=== PATIENT | female | born 1995 | race Caucasian/White ===

== ENCOUNTER 2019-07-20 02:24 | Inpatient (IN) | payer BC ==
[~2019-07-20] VITALS: Ht 162.6 cm; Wt 68.8 kg
[2019-07-20] MEDS ORDERED: ZYRTEC10 MG PO (02:29)
[2019-07-20] MEDS ORDERED: OMEPRAZOLE20 M1 PO ×2 (02:30→05:37)
[2019-07-20] MEDS ORDERED: CARAFATE1 G PO (02:30)
[2019-07-20] MEDS ORDERED: BIRTH CONTROL (02:30)
[2019-07-20 02:53] LABS: BASOPHILS 0.2 % (0-2); EOSINOPHILS 2.3 % (0-7); HEMATOCRIT 41.8 % (36.0-48.0); HEMOGLOBIN 14.2 g/dL (12-16); IMMATURE GRANULOCYTES 0.4 % (0-5); LYMPHOCYTES 33.3 % (15-50); MCH 30.1 pg (26.0-34.0); MCV 88.7 fL (80.0-100.0); MEAN PLATELET VOLUME 10.3 fL (7.4-10.4); MONOCYTES 6.6 % (2-11); NEUTROPHILS 57.2 % (40-80); PLATELET COUNT 201 10x3/uL (130-400); RBC 4.71 10x6/uL (4.00-5.40); RDW 12.3 % (11.5-14.5); WBC 9.3 10x3/uL (4.8-10.8)
[2019-07-20 02:57] LABS: APPEARANCE CLEAR (CLEAR); BILIRUBIN NEGATIVE (NEGATIVE); COLOR STRAW (YELLOW); GLUCOSE NEGATIVE (NEGATIVE); KETONE NEGATIVE (NEGATIVE); NITRITE NEGATIVE (NEGATIVE); PROTEIN NEGATIVE (NEGATIVE); SPECIFIC GRAVITY 1.005 (1.005-1.020); UROBILINOGEN NORMAL (NORMAL)
[2019-07-20 03:02] LABS: HCG SERUM NEGATIVE (NEGATIVE)
[2019-07-20 03:03] LABS: CALC OSMOLALITY 277 mosm/kg (275-300); CALCIUM 9.6 mg/dL (8.5-10.1); CARBON DIOXIDE 28.5 mmol/L (21.0-32.0); CHLORIDE - SERUM 102 mmol/L (98-107); CREATININE - SERUM 0.7 mg/dL (0.6-1.3); GLUCOSE 98 mg/dL (74-106); POTASSIUM - SERUM 3.4 mmol/L (3.5-5.1); SODIUM 139 mmol/L (136-145); UREA NITROGEN 12 mg/dL (7-18); eGFR NON AFRICAN AMERICAN > 90 mL/min (90-120)
[2019-07-20 03:09] LABS: ALBUMIN 3.5 g/dL (3.4-5.0); ALKALINE PHOSPHATASE 67 U/L (46-116); ALT (SGPT) 28 U/L (10-68); AMYLASE - SERUM 49 U/L (25-115); BILIRUBIN - TOTAL 0.36 mg/dL (0.2-1.3); LIPASE 237 U/L (73-393); PROTEIN - SERUM 7.4 g/dL (6.4-8.2)
[2019-07-20 04:05] VITALS: BP 123/82
--- NOTE | 2019-07-20 04:12 | NUR ---
PT LEFT ED VIA STRETCHER FOR CT.
--- NOTE | 2019-07-20 04:28 | NUR ---
PT RETURNED TO ED VIA STRETCHER FROM CT.
[2019-07-20] MEDS ORDERED: PHENERGAN25 M1 PO (05:37)
[2019-07-20] MEDS ORDERED: LINZESS145 MCG PO (05:37)
[2019-07-20] MEDS ORDERED: CELEXA10 MG PO (05:38)
--- NOTE | 2019-07-20 06:00 | NUR ---
PT ARIVED VIA W/C WITH FMILY AT SIDE. NO DISTRESS NOTED.
[2019-07-20] MEDS ORDERED: LORYNA (06:09)
[2019-07-20 06:11] VITALS: BP 130/89; BMI 26.6
--- NOTE | 2019-07-20 06:26 | NUR ---
ADMISSION ASSESSMENT, HISTORY AND HOME MED LIST COMPLETED. PT STATES ABD STILL 12/24. IV TO RAC WITH NS AT 200CC/HR. IV PATENT. PT UNDERSTANDS NPO UNTIL AFTER ABD U/S AND SEEN BY DR MG. SPOUSE AT BEDSIDE. SR UP X1, CALL LIGHT WITHIN REACH.
[2019-07-20 09:47] VITALS: Ht 162.6 cm; Wt 68.8 kg
[2019-07-20 10:12] VITALS: BP 116/73
[2019-07-20] MEDS ORDERED: HYDROCODON-ACE1 EAC7 PO (13:32)
[2019-07-20 15:27] VITALS: BP 123/76
[2019-07-20 19:31] VITALS: BP 118/78
--- NOTE | 2019-07-20 20:45 | NUR ---
PATIENT RESTING IN BED WITH EYES OPEN. CALM AND COOPERATIVE WITH CARE AND ASSESSMENT. COMPLAINS OF ABDOMINAL PAIN AND NAUSEA. WILL FOLLOW UP WITH MORPHINE AND ZOFRAN. FAMILY AT BEDSIDE. BED IN LOWEST POSITION. SIDE RAILS UP. CALL LIGHT IN REACH. WILL CONTINUE TO MONITOR.
[2019-07-21 00:16] VITALS: BP 102/71
--- NOTE | 2019-07-21 03:55 | NUR ---
PATIENT RESTING IN BED WITH EYES CLOSED. NO SIGNS OF DISTRESS. FAMILY AT BEDSIDE. BED IN LOWEST POSITION. SIDE RAILS UP. CALL LIGHT IN REACH. WILL CONTINUE TO MONITOR.
[2019-07-21 05:59] VITALS: BP 114/77
[2019-07-21 06:29] LABS: BASOPHILS 0.1 % (0-2); EOSINOPHILS 0.2 % (0-7); HEMATOCRIT 38.2 % (36.0-48.0); HEMOGLOBIN 12.4 g/dL (12-16); IMMATURE GRANULOCYTES 0.2 % (0-5); MCH 29.2 pg (26.0-34.0); MCHC 32.5 g/dL (31.0-37.0); MCV 90.1 fL (80.0-100.0); MEAN PLATELET VOLUME 10.9 fL (7.4-10.4); MONOCYTES 7.3 % (2-11); NEUTROPHILS 80.2 % (40-80); PLATELET COUNT 175 10x3/uL (130-400); RBC 4.24 10x6/uL (4.00-5.40); RDW 12.4 % (11.5-14.5)
[2019-07-21 06:41] LABS: CALCIUM 8.4 mg/dL (8.5-10.1); CARBON DIOXIDE 24.5 mmol/L (21.0-32.0); CHLORIDE - SERUM 105 mmol/L (98-107); CREATININE - SERUM 0.6 mg/dL (0.6-1.3); GLUCOSE 103 mg/dL (74-106); SODIUM 139 mmol/L (136-145); eGFR NON AFRICAN AMERICAN > 90 mL/min (90-120)
[2019-07-21 06:43] LABS: CALC OSMOLALITY 274 mosm/kg (275-300); POTASSIUM - SERUM 4.1 mmol/L (3.5-5.1); UREA NITROGEN 4 mg/dL (7-18)
[2019-07-21 07:01] LABS: WBC 12.8 10x3/uL (4.8-10.8)
--- NOTE | 2019-07-21 07:31 | NUR ---
PT RESTING IN BED WITH EYES CLOSED, EASILY AROUSED WHEN I ENTERED THE ROOM, FAMILY AT THE BEDSIDE. IV LOCATED TO RIGHT AC RUNNING NS @ 125ML. STATES PAIN IS STILL AT A 9/10 EVEN AFTER HAVING PAIN MEDICINE NOT LONG AGO. REQUESTING SOME APPLE SAUCE, BUT DENIES ANY FURTHER NEEDS AT THIS TIME, WILL CONT TO MONITOR.
[2019-07-21 08:01] VITALS: BP 106/77
[2019-07-21 12:24] VITALS: BP 117/77
--- NOTE | 2019-07-21 14:08 | NUR ---
PT HAS BEEN UP WALKING 2 TIMES DOWN THE HALLWAY AND BACK TO ROOM.
[2019-07-21 16:26] VITALS: BP 109/67
[2019-07-21 19:03] LABS: CREATININE - SERUM 0.8 mg/dL (0.6-1.3)
[2019-07-21 19:05] LABS: HCG SERUM NEGATIVE (NEGATIVE)
[2019-07-21 19:22] VITALS: BP 134/78
--- NOTE | 2019-07-21 20:06 | NUR ---
EVENING ROUNDS COMPLETED. VSS, AAOX4, PT C/O ABDOMINAL PAIN. STATES ITS AT 9/10 AT THIS TIME. NO PRN PAIN MEDS DUE AT THIS TIME. CALLED AND NOTIFIED SHARATH CLEMENTS. TYREE STATED HE IS AWAITING RESULTS FROM CT SCAN BEFORE FURTHER INTERVENTIONS ARE CARRIED OUT. PT DENIES ANY FURTHER NEEDS AT THIS TIME. WILL CPOC.
--- NOTE | 2019-07-21 21:29 | NUR ---
PT BACK FROM CT. PT CHANGED TO INPATIENT CARE BY PROVIDER. PT STATES PAIN IS A 5/10 AT THIS TIME, AND IT STILL HURTS A LITTLE N HER ABDOMEN. TEMP 99.1. WILL CTM.
[2019-07-22 00:21] VITALS: BP 119/75
[2019-07-22 04:00] VITALS: BP 120/80
[2019-07-22 06:11] LABS: BASOPHILS 0.1 % (0-2); EOSINOPHILS 1.3 % (0-7); HEMATOCRIT 36.7 % (36.0-48.0); HEMOGLOBIN 11.8 g/dL (12-16); IMMATURE GRANULOCYTES 0.1 % (0-5); LYMPHOCYTES 29.6 % (15-50); MCH 29.5 pg (26.0-34.0); MCHC 32.2 g/dL (31.0-37.0); MCV 91.8 fL (80.0-100.0); MEAN PLATELET VOLUME 10.6 fL (7.4-10.4); NEUTROPHILS 61.9 % (40-80); PLATELET COUNT 168 10x3/uL (130-400); RDW 12.8 % (11.5-14.5)
[2019-07-22 06:29] LABS: CALC OSMOLALITY 282 mosm/kg (275-300); CALCIUM 8.2 mg/dL (8.5-10.1); CHLORIDE - SERUM 108 mmol/L (98-107); CREATININE - SERUM 0.7 mg/dL (0.6-1.3); GLUCOSE 92 mg/dL (74-106); POTASSIUM - SERUM 3.6 mmol/L (3.5-5.1); SODIUM 143 mmol/L (136-145); UREA NITROGEN 6 mg/dL (7-18); eGFR NON AFRICAN AMERICAN > 90 mL/min (90-120)
[2019-07-22 06:35] LABS: WBC 6.9 10x3/uL (4.8-10.8)
[2019-07-22 08:03] VITALS: BP 111/72
--- NOTE | 2019-07-22 10:46 | NUR ---
SPOKE WTIH DR. LUX NURSE AT HIS CLINIC ABOUT DR. ALVARADO BEING OK AND DISCHARGING PT LONG HE IS OK WITH IT AND PUTS IN DISCHARGE ORDER. SHE STATES HE IS IN A ROOM RIGHT NOW BUT WHEN HE GETS OUT SHE WILL ASK HIM AND LUCAS ME BACK. I VERBALIZED UNDERSTANDING AND GAVE HER THE NUMBER FOR MED [phone].
--- NOTE | 2019-07-22 11:21 | NUR ---
SPOKE WITH PB NURSE FROM DR. LUX SHE STATED THAT MD STATED THAT HE WILL COME ROUND LATER AND WILL DECIDE FOR HIMSELF IF HE WANTS TO SEND HER HOME OR NOT.
[2019-07-22 11:31] VITALS: BP 111/76
--- NOTE | 2019-07-22 11:35 | NUR ---
PT DENIES THE NEED FOR ANY PAIN MEDICATION AT THIS TIME.
--- NOTE | 2019-07-22 11:37 | NUR ---
I have reviewed this patient and I concur with the Shift Assessment completed by the Licensed Practical Nurse today this shift.
--- NOTE | 2019-07-22 14:15 | NUR ---
PATIENT STATES THAT SHE HAD THE CURRENT FLU VACCINE THREE WEEKS AGO. NO FLU VACCINE REQUIRED AT THIS TIME.
--- NOTE | 2019-07-22 14:53 | NUR ---
PATIENT CALM AND ALERT, DENIES PAIN, NO S/S DISTRESS, DISCHARGE INSTRUCTIONS PROVIDED INCLUDING MEDICATIONS AND FOLLOW-UP INSTRUCTIONS, IV DISCONTINUED WITHOUT ISSUE, PERSONAL BELONGINGS PACKED IN BELONGINGS BAG PER FAMILY, PATIENT DISCHARGED FROM UNIT AND ASSISTED TO EXIT DOOR IN W/C PER STAFF.
--- NOTE | 2019-07-22 19:47 | MORECARE ---
CASE MANAGEMENT DISCHARGE SUMMARY PATIENT: GREG CABRERA UNIT: [id number] ADM DATE: 07/21/19 AGE: 23 : [birth year] SEX: F ROOM/BED: D.1210 AUTHOR: GONZALO DUARTE PHYSICIAN: REFERRING PHYSICIAN: SHELLEY LUX MD DATE OF SERVICE: 07/22/19 Discharge Plan Patient Name: GREG CABRERA [facility] [facility] 1995 Planned Disposition: Home Anticipated Discharge Date: Discharge Date: 07/22/2019 Expected LOS: Initial Reviewer: [email or web address] Initial Review Date: 07/22/2019 Generated: 07/22/19 8:47 pm DCPIA - Discharge Planning Initial Assessment Updated by [email or web address]: [place] Krause on 07/22/19 7:46 pm * Is the patient Alert and Oriented? Yes * How many steps to enter\exit or inside your home? * [facility] * Pharmacy [facility] * Preadmission Environment Home with Family * ADLs Independent * Equipment None * List name and contact numbers for known caregivers / representatives who currently or will assist patient after discharge: SHREYAS CABRERA - SPOUSE - [phone] * Verbal permission to speak to the caregivers and representatives has been obtained from the patient. Yes * Community resources currently utilized None * Additional services required to return to the preadmission environment? No * Can the patient safely return to the preadmission environment? Yes * Has this patient been hospitalized within the prior 30 days at any hospital? No Patient Name: GREG CABRERA Page [id number] at 1949 All edits/amendments must be made on the electronic document DICTATION DATE: 07/22/191946 DOCUMENTUM CONSULTANT: JANETT 07/22/191946 RPT#: [id number] DC DATE:07/22/19 STATUS: DIS IN [facility] [address] [place] [address] END OF REPORT
--- NOTE | 2019-07-22 19:54 | MORECARE ---
CASE MANAGEMENT DISCHARGE SUMMARY PATIENT: GREG CABRERA UNIT: [id number] ADM DATE: 07/21/19 AGE: 23 : [birth year] SEX: F ROOM/BED: D.1210 AUTHOR: GERALD,DOC PHYSICIAN: REFERRING PHYSICIAN: SHELLEY LUX MD DATE OF SERVICE: 07/22/19 Discharge Plan Patient Name: GREG CABRERA Facility: [facility]:[place] : 1995 Planned Disposition: Home Anticipated Discharge Date: Discharge Date: 07/22/2019 Expected LOS: Initial Reviewer: [email or web address] Initial Review Date: 07/22/2019 Generated: 07/22/19 8:53 pm Comments DCP- Discharge Planning Updated by [email or web address]: [place] Krause on 07/22/19 6:[address] LATE ENTRY 07/22/19 @ 1210 Patient Name: GREG CABRERA Admission Status: ER Accout number: [id number] Admission Date: 07-21-2019 : 1995 Admission Diagnosis: Attending: LEONOR Current LOS: 1 Anticipated DC Date: Planned Disposition: Home Primary Insurance: [employer] [facility] Discharge Planning Comments: CM met with patient to complete initial dc planning assessment. CM educated patient on the CM role and verbal consent given by patient to complete assessment. Patient lives at home with her where she is independent with her care. At discharge patient plans to return home and feels this is a safe discharge. CM discussed availability of home health, rehab services, and medical equipment. Her will drive her home upon discharge. Patient denied known discharge needs at this time. CM will continue to follow and will assist as needed with dc plans/needs. Lump Maker: [place] Krause DCPIA - Discharge Planning Initial Assessment Updated by [email or web address]: [place] Krause on 07/22/19 7:46 pm * Is the patient Alert and Oriented? Yes * How many steps to enter\exit or inside your home? * [facility]CP [facility] * Pharmacy [facility] * Preadmission Environment Home with Family * ADLs Independent * Equipment None * List name and contact numbers for known caregivers / representatives who currently or will assist patient after discharge: SHREYAS CABRERA - SPOUSE - [phone] * Verbal permission to speak to the caregivers and representatives has been obtained from the patient. Yes * Community resources currently utilized None * Additional services required to return to the preadmission environment? No * Can the patient safely return to the preadmission environment? Yes * Has this patient been hospitalized within the prior 30 days at any hospital? No Last DP export: 07/22/19 6:47 p Patient Name: GREG CABRERA Page [id number] at 1956 All edits/amendments must be made on the electronic document DICTATION DATE: 07/22/191952 STOCK LIFTER: JANETT 07/22/191952 RPT#: [id number] DC DATE:07/22/19 STATUS: DIS IN [facility] [address] [place] [address] END OF REPORT
== END 2019-07-22 14:55 | disposition home or self-care (01) | DRG 418 ==
LOC: D.ER 02:24 → D.M2 05:00 → D.M3 05:00 → OBSVTIME 05:00 → D.M3 05:00
PROVIDERS: Family Medicine; Surgery; ADMIT Family Medicine; ATTEND Family Medicine
PROC: 0FT44ZZ Resection of Gallbladder, Percutaneous Endoscopic Approach (ICD-10-PCS; principal; 2019-07-20 14:15)
DX: K81.0 Acute cholecystitis (principal); J98.11 Atelectasis; E87.6 Hypokalemia; K58.9 Irritable bowel syndrome, unspecified